=== PATIENT | female | born 1990 | race Two or more races ===

== ENCOUNTER 2021-09-08 06:29 | Inpatient (IN) ==
[2021-09-08] MEDS ORDERED: PITOCIN ONE ×3 (06:39→23:48)
[2021-09-08] MEDS ORDERED: D5 1/2 NS 1,000 ML 1,000 ML IV ONE (06:39)
[2021-09-08] MEDS ORDERED: BETADINE SOLN ONE (06:39)
[2021-09-08] MEDS ORDERED: D5 1/2 NS 1,000 mL + PITOCIN 20 UNITS/L IV 20 UNITS/1,000 ML BAG IV ONE (06:40)
[2021-09-08] MEDS ORDERED: D5 LR + PITOCIN 10 UNITS/L 10 UNITS/1,000 ML BAG IV ONE (06:40)
[2021-09-08] MEDS ORDERED: D5 LR + PITOCIN 10 UNITS/L 10 UNITS/1,000 ML BAG IV PRN (06:51)
[2021-09-08] MEDS ORDERED: D5 1/2 NS 1,000 ML 1,000 ML IV SCH (07:00)
[2021-09-08] MEDS ORDERED: AMPICILLIN VIAL 2 GRAM 2 G in NS 100 ML IV + SPIKE MINIBAG* 100 ML IV SCH (07:00)
[2021-09-08 07:15] LABS: BILIRUBIN,URINE 1+ (NEGATIVE); BLOOD/HEMOGLOBIN,URINE 2+ (NEGATIVE); GLUCOSE, URINE NEGATIVE (NEGATIVE); KETONES,URINE NEGATIVE (NEGATIVE); LEUKOCYTE ESTERASE ,URINE 3+ (NEGATIVE); NITRITES,URINE NEGATIVE (NEGATIVE); PROTEIN,URINE 2+ (NEGATIVE); UROBILINOGEN,URINE 2+ (NORMAL)
[2021-09-08 07:15] LABS: BASOPHILS % (AUTO) 0.6 % (0.2-1.0); EOSINOPHILS # (AUTO) 0.1 x10^3/uL (0.0-0.2); EOSINOPHILS % (AUTO) 1.7 % (0.9-2.9); HEMATOCRIT 38.5 % (36.0-47.0); HEMOGLOBIN 12.8 g/dL (12.0-16.0); LYMPHOCYTES % (AUTO) 28.3 % (21.0-51.0); MEAN CORPUSCULAR HEMOGLOBIN 26.6 pg (27.0-34.0); MEAN CORPUSCULAR HGB CONC 33.2 g/dL (33.0-35.0); MEAN CORPUSCULAR VOLUME 79.9 fL (80.0-100.0); MEAN PLATELET VOLUME 9.2 fL (7.4-11.0); MONOCYTES # (AUTO) 0.5 x10^3/uL (0.3-0.8); MONOCYTES % (AUTO) 7.2 % (0.0-13.0); NEUTROPHILS # (AUTO) 4.4 x10^3/uL (2.2-4.8); NEUTROPHILS % (AUTO) 62.2 % (42.0-75.0); PLATELET COUNT 225 X10^3/uL (150.0-450.0); RED BLOOD COUNT 4.81 X10^6/uL (3.5-5.4)
[2021-09-08 07:22] LABS: BLOOD UREA NITROGEN 9 mg/dL (7-18); CALCIUM 8.4 mg/dL (8.5-10.1); CHLORIDE 104 mmol/L (98-107); SODIUM 137 mmol/L (136-145); eGFR NON BLACK RACES > 60 (>60)
[2021-09-08] MEDS ORDERED: NS 100 ML IV 100 ML ONE ×2 (07:27→12:04)
[2021-09-08] MEDS ORDERED: AMPICILLIN VIAL 2 GRAM ONE (07:27)
[2021-09-08 08:48] LABS: APPEARANCE,URINE HAZY (CLEAR); COLOR,URINE DARK YELLOW (YELLOW)
[2021-09-08 08:49] LABS: BACTERIA,URINE 3+ /HPF (NEGATIVE)
[2021-09-08 08:51] LABS: SQUAMOUS EPITHELIAL CELL,UR MANY /HPF (NEGATIVE)
[2021-09-08] MEDS ORDERED: STADOL INJ ONE (11:09)
[2021-09-08] MEDS: AMPICILLIN VIAL 1 GRAM 1 G in NS 50 ML IV + SPIKE MINIBAG* 50 ML IV SCH ×2 (12:00→12:12)
[2021-09-08] MEDS ORDERED: AMPICILLIN VIAL 1 GRAM ONE (12:04)
[2021-09-08] MEDS ORDERED: STADOL INJ IVP PRN (12:11)
[2021-09-08] MEDS ORDERED: MOTRIN TAB 800 MG PO PRN ×2 (15:24→15:59)
[2021-09-08] MEDS ORDERED: PHENERGAN INJ 25 MG IM PRN (15:24)
[2021-09-08] MEDS ORDERED: LR 1,000 ML IV 1,000 ML IV ONE ×2 (15:56→23:49)
[2021-09-08] MEDS ORDERED: DERMOPLAST PAIN RELIEF SPRAY TOP PRN (15:59)
[2021-09-08] MEDS ORDERED: ADACEL or BOOSTRIX TDaP VACCINE IM ONE (15:59)
[2021-09-08] MEDS ORDERED: MILK OF MAGNESIA PO PRN (15:59)
[2021-09-08] MEDS ORDERED: AMBIEN PO PRN (15:59)
[2021-09-08] MEDS ORDERED: D5 1/2 NS 1,000 ML 1,000 ML with PITOCIN 20 UNITS IV SCH ×2 (16:00)
[2021-09-08] MEDS: LR 1,000 ML IV 1,000 ML with PITOCIN 20 UNITS IV SCH ×2 (16:05)
[2021-09-09] MEDS: LR 1,000 ML IV 1,000 ML with PITOCIN 20 UNITS IV SCH ×2 (00:05)
[2021-09-09 06:12] LABS: HEMATOCRIT 34.4 % (36.0-47.0); HEMOGLOBIN 11.3 g/dL (12.0-16.0)
[2021-09-09] MEDS ORDERED: PRENATAL PLUS PO SCH (09:00)
[2021-09-09 13:13] VITALS: BP 99/69
== END 2021-09-09 17:05 | disposition home or self-care (01) | DRG 807 ==
LOC: LD 06:29 → MED/SURG 16:04
PROVIDERS: ADMIT Obstetrics & Gynecology Obstetrics; ATTEND Obstetrics & Gynecology Obstetrics
DX: O98.82 Other maternal infectious and parasitic diseases complicating childbirth; B95.1 Streptococcus, group B, as the cause of diseases classified elsewhere; Z3A.39 39 weeks gestation of pregnancy; Z20.822 Contact with and (suspected) exposure to COVID-19; Z37.0 Single live birth